=== PATIENT | male | born 1980 | race Two or more races ===

== ENCOUNTER 2023-05-25 15:55 | Inpatient (IN) | payer BC ==
[~2023-05-25] VITALS: Ht 188 cm; Wt 120.2 kg
--- NOTE | 2023-05-25 16:11 | NUR ---
REFIERE VOMITOS ERNIE CADA HORA Y DOLOR EPIGASTRICO DESDE HOY
--- NOTE | 2023-05-25 17:11 | NUR ---
PTE ES EVALUADO POR EL CROWELL EL MISMO DA ORDEN DE TX MEDICO. SE ORIENTA A PTE SOBRE [place] MEDICO, PTE VERBALIZA ENTENDER Y ACEPTAR. EVELIN BENJAMIN COLECTA MUESTRAS DE LAB. EVELIN PICKARD ADMINISTRA MEDICAMENTOS, CARLOS EDUARDO ORDEN MEDICA USANDO MEDIDAS ASEPTICAS. SE NOTIFICA ESTUDIO A PERSONAL CORRESPONDIENTE. QUEDA PENDIENTE LA TERMINACION DEL CONTRASTE PO.
--- NOTE | 2023-05-26 00:28 | NUR ---
PTE MASCULINO ALERTA Y ORIENTADO X 3 Y RESPONDIENDO A ESTIMULOS. PACIENTE EN [place] DE K 5 SE LE REALIZA PROCEDIMIENTO DE COLOCACION DE TUBO NASOGASTRICO EL CUAL FUE BAJO MEDIDAS ASEPTICAS TOLERANDO EL MISMO. COLOCADO EN FOSAS NASALES RT DRENANDO 50 ML AL INICIO. PTE PREVIAMENTE ORIENTADO DE PROCEDIMIENTO EL CUAL REFIERE ENTENDER. TIENE CANALIZACION EN ANTEBRAZO LT CON ANGIO #18 AREA SE OBSERVA KENNETH DE EDEMA O ERITEMA. LIQUIDOS DE MANTENIMIENTO DE .9NSS/1000 ML BAJANDO A 125ML/HR, CARLOS EDUARDO ORDEN MEDICA. SE OBSERBA POR CAMBIOS CON RONDAS PREVENTIVAS.
== END 2023-05-30 14:53 | disposition home or self-care (01) | DRG 392 ==
LOC: ER 15:55 → SURG 23:26 → SURH 05-28 14:32
PROVIDERS: ADMIT Specialist; ATTEND Specialist
PROC: BW211ZZ Computerized Tomography (CT Scan) of Abdomen and Pelvis using Low Osmolar Contrast (ICD-10-PCS; principal; 2023-05-25)
DX: A05.9 Bacterial foodborne intoxication, unspecified (principal); N17.9 Acute kidney failure, unspecified; K52.29 Other allergic and dietetic gastroenteritis and colitis; E87.6 Hypokalemia